=== PATIENT | female | born 2000 | race Caucasian/White ===

== ENCOUNTER 2022-04-11 03:13 | Emergency (ER) | payer SELFPAY ==
[~2022-04-11] VITALS: Ht 170.2 cm; Wt 52.2 kg
--- NOTE | 2022-04-11 03:19 | NUR ---
Dr. Peoples at bedside for MSE
[2022-04-11] MEDS ORDERED: HYDROCODONE/APAP 10-325 MG TABLET ONE (03:25)
[2022-04-11] MEDS ORDERED: ONDANSETRON ODT 4 MG TAB.RAPDIS ONE (03:25)
--- NOTE | 2022-04-11 03:28 | NUR ---
Pt in bed guarding left wrist, crying in pain. Rates pain 10/10. Agar given, tolerated medication well. Pt is AOx4, able to make needs known. Acute distress noted at this time due to extreme pain. Distraction and comfort provided.
[2022-04-11] MEDS ORDERED: HYDROCODONE/APAP 10-325 MG TABLET PO ONE (03:30)
[2022-04-11] MEDS ORDERED: ONDANSETRON ODT 4 MG TAB.RAPDIS SL ONE (03:30)
--- NOTE | 2022-04-11 03:39 | NUR ---
Xray at bedside
[2022-04-11] MEDS ORDERED: ONDA4TAB5 PO (03:48)
[2022-04-11] MEDS ORDERED: HYDR-4209 PO (03:48)
--- NOTE | 2022-04-11 04:04 | NUR ---
Patient discharged to home in stable condition. Written and verbal after care instructions given. Patient verbalizes understanding of instructions. Stressed follow up or return to ER for worsening s/s.
--- NOTE | 2022-04-11 04:10 | NUR ---
reassessment of medication not done because pt was discharged
[2022-04-11 04:11] VITALS: BP 120/75
== END 2022-04-11 04:12 | disposition home or self-care (01) ==
LOC: ER 03:35
DX: S63.502A Unspecified sprain of left wrist, initial encounter (principal); W01.0XXA Fall on same level from slipping, tripping and stumbling without subsequent striking against object, initial encounter; Y92.89 Other specified places as the place of occurrence of the external cause; Z88.0 Allergy status to penicillin
CPT/HCPCS: 73110; A4663; Q0162